=== PATIENT | female | born 1970 | race Caucasian/White ===

== ENCOUNTER 2024-06-14 20:47 | Emergency (ER) | payer MEDICARE, SELFPAY ==
--- NOTE | ~2024-06-14 | XR_ITS ---
EXAMINATION: XR shoulder RT min 2V DATE: 06/14/2024 22:15 INDICATION: Right shoulder injury with acromioclavicular joint separation TECHNIQUE: AP internally and externally rotated, AP oblique externally rotated and transscapular Y vi ews of the right shoulder were obtained. COMPARISON: None FINDINGS: Normal alignment. No fracture. Minimal glenohumeral osteoarthritis. There is moderate to severe oste oarthritis at the right acromioclavicular joint with moderate-sized inferiorly directed osteophytes. Chronic sclerotic bone island along the proximal metadiaphysis of the right humerus which can be seen dating back to PET/CT in 2012. Soft tissues are unremarkable. IMPRESSION: Moderate to severe right briceño clavicular and minimal right humeral osteoarthritis. No acute osseous abnormality. Reviewed, dictated and finalized at location A. IMPRESSION: Moderate to severe right briceño clavicular and minimal right humeral osteoarthr itis. No acute osseous abnormality.
--- NOTE | ~2024-06-14 | XR_ITS ---
EXAMINATION: XR shoulder LT min 2V DATE: 06/14/2024 22:15 INDICATION: Left shoulder pain TECHNIQUE: AP internally and externally rotated, AP oblique externally rotated and transscapular Y vi ews of the left shoulder were obtained. COMPARISON: None FINDINGS: Normal alignment. No fracture. Glenohumeral joint is normal. Mild left acromioclavicular osteoarthri tis. Soft tissues are unremarkable. IMPRESSION: Mild left acromioclavicular osteoarthritis. No acute osseous abnormality. Reviewed, dictated and finalized at location A.
--- NOTE | ~2024-06-14 | XR_ITS ---
EXAMINATION: XR chest 2V DATE: 06/14/2024 22:15 INDICATION: Cough and wheezing TECHNIQUE: PA and lateral views of the chest were obtained. COMPARISON: Chest radiograph dated 07/03/2010 FINDINGS: The lungs are clear with no focal airspace opacities, pulmonary edema, pleural effusion or pneumothor ax. The cardiomediastinal silhouette is normal. Mild thoracic spondylosis. IMPRESSION: 1. No acute cardiopulmonary disease. Reviewed, dictated and finalized at location A.
[2024-06-14 20:53] VITALS: BP 190/88; PULSE 97; RESP 22; O2SAT 98
--- NOTE | 2024-06-14 21:31 | ED.GENADULT ---
HPI - General Adult General Chief complaint: Extremity Injury, Upper Stated complaint: L shoulder pain that radiates to her back Time Seen by Provider: 06/14/24 21:30 Source: patient Mode of arrival: ambulatory Limitations: no limitations History of Present Illness HPI narrative: 53-year-old white female says she has was moving furniture 2 and half weeks ago since that time she has had left shoulder pain. Rates as a 05/31. She has been taking Tylenol. She last took some Aleve at 4:30 a.m. today. She took a friend's Flexeril. It is worse when she moves it is better when she uses muscle rub or cold helps it she has also had some lidocaine that she is put on it which helps. She says she has a history of 3 nodule 6 years ago but never followed up on that denies any shortness of breath she has a chronic cough with no changes otherwise she is eating drinking voiding and stooling fine without any fever swelling lumps or bumps bleeding or bruising. She has had some dizziness yesterday and the day before associated with a headache. Does not have any headache now. Denies any other pain in her body right now she is in between primary care providers she is going to see Dr. Wakefield in June 26 or or the through HS. She has history of hypertension hyperlipidemia bipolar for which she is on disability she has understood lot of stress because her sister 3 years ago of angina. Denies any other complaints. Related Data Home Medications Medication Instructions Recorded Confirmed atorvastatin 20 mg tablet 20 mg PO HS 06/14/24 06/14/24 clonazepam 1 mg tablet 1 mg PO TID 06/14/24 06/14/24 fluoxetine 40 mg capsule 40 mg PO DAILY 06/14/24 06/14/24 metoprolol succinate 25 mg 25 mg PO DAILY 06/14/24 06/14/24 tablet,extended release 24 hr valacyclovir 500 mg tablet 500 mg PO BID 06/14/24 06/14/24 venlafaxine 75 mg capsule,extended 75 mg PO DAILY 06/14/24 06/14/24 release 24 hr zolpidem 10 mg tablet 10 mg PO HS PRN Sleep 06/14/24 06/14/24 Allergies Allergy/AdvReac Type Severity Reaction Status Date / Time Penicillins Allergy Unknown Unknown Verified 06/14/24 23:40 Review of Systems Review of Systems: All systems reviewed & are unremarkable except as noted in HPI and below PMFSH Past Medical History Medical History Arthritis Surgical History Surgical History H/O section History of arthroscopy of both knees Family History Family History Grandparent Hypertension Family history of malignant neoplasm of breast Mother Family history of diabetes mellitus in first degree relative Cerebrovascular accident Family history of osteoporosis Hypertension Family history of malignant neoplasm of kidney Father Asthma Family history of lymphoma Other Family history of malignant neoplasm of male breast Social History Social History Second hand tobacco smoke exposure: Yes Alcohol intake: never Gender identity (if verbalized by the patient): Female Exam Narrative: White female patient with no apparent distress.? Head normocephalic, atraumatic.? Eyes conjunctiva pink sclera nonicteric.? Extraocular movements are intact.? Ears externally normal.? Oropharynx is clear with moist mucous membranes without exudates.? Neck is supple nontender no lymphadenopathy.? Back is nontender.? Lungs are clear.? Heart is regular rate and rhythm without murmurs gallops or rubs.? Chest wall nontender. Abdomen is soft and nontender no hepatosplenomegaly or masses no CVA tenderness no abdominal bruits.? Extremities: Left shoulder has full range of motion she has mild diffuse tenderness. Specially in the trapezius her neck is nontender and full range of motion neurovascular intact for left upper extremity. She
[2024-06-14] MEDS: KETOROLAC 30 MG/ML VIAL (*BKC) IM (22:55)
[2024-06-14 23:22] VITALS: BP 156/82; PULSE 89; RESP 20; O2SAT 97
[2024-06-14] MEDS: HYDROcodone/acetaminophen (*CRX) 5-325 MG TABLET 1 TAB PO (23:43)
== END 2024-06-14 23:55 | disposition home or self-care (01) ==
PROVIDERS: Emergency Provider Emergency Medicine
DX: M25.512 Pain in left shoulder (principal); Z79.899 Other long term (current) drug therapy
CPT/HCPCS: 71046; 73030; 96372; 99284; A9270; J1885

== ENCOUNTER 2024-08-25 13:11 | Outpatient (CLI) | payer MEDICARE, MEDICAID, SELFPAY ==
--- NOTE | ~2024-08-25 | US_ITS ---
EXAMINATION: US soft tissue abdomen DATE: 08/25/2024 13:37 INDICATION: Ventral hernia without obstruction or gangrene. TECHNIQUE: Multiple grayscale and Doppler ultrasound images of the abdomen were obtained. COMPARISON: CT abdomen and pelvis 12/10/2011 FINDINGS: There is a supraumbilical ventral hernia. IMPRESSION: 1. Supraumbilical ventral hernia. Reviewed, dictated and finalized at location A. ICULUM AND ASSESSMENT COORDINATOR
== END 2024-08-25 13:12 | disposition home or self-care (01) ==
LOC: CHSIMG 13:14
PROVIDERS: PCP Nurse Practitioner Family; Visit Provider Nurse Practitioner Family
DX: K43.9 Ventral hernia without obstruction or gangrene (principal)
CPT/HCPCS: 76705

== ENCOUNTER 2024-11-24 13:26 | Outpatient (CLI) | payer MEDICARE, MEDICAID, SELFPAY ==
--- NOTE | ~2024-11-24 | XR_ITS ---
[id number] Ordering provider: Evon Peraza NP History: . M54.2 - Cervicalgia . Comparison: None. FINDINGS: VERTEBRAL BODIES: Normal height and alignment. No visible fracture or subluxation. The dens is intact . DISK SPACES: Narrowing of the disc C6-C7. Multilevel uncovertebral joint osteoarthritic changes. PARASPINOUS SOFT TISSUES: No prevertebral soft tissue swelling. IMPRESSION: No acute osseous abnormality cervical spine. Reviewed, dictated and finalized at location A. MILL OPERATOR
--- NOTE | ~2024-11-24 | MM_ITS ---
EXAMINATION: MM screening oscar BI w antony HISTORY: Screening mammogram TECHNIQUE: Craniocaudal and mediolateral oblique 3-D tomosynthesis images were obtained and synthetic 2-D images were generated. CAD analysis was submitted and interpreted. COMPARISON: No prior mammogram is available for comparison at this institution. BREAST PARENCHYMAL COMPOSITION:Not Dense. There are scattered areas of fibroglandular density. FINDINGS: No suspicious mass, calcification, or architectural distortion are identified in either delia ast to suggest malignancy. There has been no suspicious interval change. IMPRESSION: No mammographic evidence of malignancy. Recommend routine screening mammography in one year. BI-RADS Category 1: Negative Reviewed, dictated and finalized at location . [employer]
--- NOTE | 2024-11-24 13:34 | ECG_ITS ---
Test Date: 2024-11-24 14:07:31 Measurements Intervals Epsom Rate: 83 P: 64 VT: 186 QRS: 66 QRSD: 90 T: 71 QT: 392 QTc: 463 Interpretive Statements SINUS RHYTHM POSSIBLE LEFT VENTRICULAR HYPERTROPHY [VOLTAGE CRITERIA PLUS LAE OR QRS WIDENING] POSSIBLE SEPTAL MYOCARDIAL INFARCTION , OF INDETERMINATE AGE [30 ms Q WAVE IN V1/V2] No previous ECG available for comparison Electronically Signed On 11-24-2024 14:14:24 IT PROGRAMMER ANALYST by Edy Craft M.D.
--- OUTSIDE RECORDS SUMMARY | 2024-11-24 14:49 | XMS_ITS ---
Author Organization [facility] Address [facility] [address] [facility] [address] [place] [address] Care Team Providers Care Supervisor Endless Track Vehicle Name Role Phone Malik French Unavailable [phone] Migration, Provider Unavailable Unavailable REASON FOR VISIT EMR-Reymundo Social History Sex Assigned At : Social History Observation Description Sex Assigned At Female Encounters Encounter Location Date Provider Diagnosis [facility] [place] [id number] [facility] [address] [place] [address] 02/06/2024 Provider Migration Plan Of Treatment Next Appt Details Provider Name:Malik vera, 12/01/2024 01:45:00 PM, [address], [facility] [address], [place], [address], Progress Notes * RUPERT PASTORDOB:[birth year] (53 yo F)Acc No.[id number]:02/06/2024 Patient: RUPERT LOUIS :1970 A ge:53 Y S ex:Female Address:[address] [place] [address], [id number] Subjective: * Chief Complaints: * E MR-Reymundo * Medical History: * Surgical History: * Hospitalization/Major Diagno stic Procedure: * Medications: Objective: * Vitals: * Physical Examination: Assessment: Plan: * Treatment: * Procedure Codes: * true * Date: Generated for Printi ng/Faxing/eTransmitting on: 0 11/24/2024 02:49 PM DIORAMIST
--- OUTSIDE RECORDS SUMMARY | 2024-11-24 14:49 | XMS_ITS ---
Author Organization [facility] [employer] [employer] Address [address] [facility] [address] [place] [address] Care Team Providers Care Wildfire Prevention Specialist Name Role Phone Malik French Unavailable [phone] Migration, Provider Unavailable Unavailable REASON FOR VISIT EMR-Reymundo Medications Medication SIG (Take, Route, Frequency, Duration) Notes Start Date End Date Status Ibuprofen 800 MG Oral Act katerina amLODIPine Besylate 10 MG Oral Active Ziprasidone HCl 20 MG Oral Active amLODIPine Besylate 2.5 MG Oral Active clonazePAM 1 MG Oral Acti ve hydrOXYzine Pamoate 50 MG Oral Active ADACEL TDAP 2 Lf-(2.5-5-3-5 mcg)-5Lf/0.5 mL Intramuscular *Reorder from [facility] for eRx and Interaction Alerts* Active hydroCHLOROthiazide 25 MG Oral Active Zolpidem Tartrate 5 MG Oral Active FLUoxetine HCl 20 MG Oral Active amLODIPine Besylate 5 MG Oral Active Cephalexin 500 MG Oral Ac tive Zolpidem Tartrate 10 MG Oral Active Venlafaxine HCl ER 75 MG Oral Active hydroCHLOROthiazide 12.5 MG Oral Active valACYclovir HCl 1 GM Oral Active ARIPiprazole 15 MG Oral A ctive ARIPiprazole 10 MG Oral A ctive Atorvastatin Calcium 20 MG Oral Active Social History Sex Assigned At : Social History Observation Description Sex Assigned At Female Encounters Encounter Location Date Provider Diagnosis [facility] [address] [facility] [address] [facility] [address] [place] [address] 02/07/2024 Provider Migration Plan Of Treatment Next Appt Details Provider Name:Malik vera, 12/01/2024 01:45:00 PM, [address], [facility] [address], [place], [address], Progress Notes * RUPERT PASTORDOB:[birth year] (53 yo F)Acc No.[id number]:02/07/2024 Patient: RUPERT LOUIS :1970 A ge:53 Y S ex:Female Address:[address] [place] [address] Subjective: * Chief Complaints: * E MR-Reymundo * Medical History: * Surgical History: * Hospitalization/Major Diagno stic Procedure: * Medications: T akingamLODIPine Besylate 2.5 MG Tablet Oral clonazePAM 1 MG Tablet Oral Ziprasidone HCl 20 MG Capsule Oral ADACEL TDAP 2 Lf-(2.5-5-3-5 mcg)-5Lf/0.5 mL Suspension Intramuscular , Notes to Pharmacist: *Reorder from [facility] for eRx and Interaction Alerts*Venlafaxine HCl ER 75 MG Capsule Extended Release 24 Hour Oral hydroCHLOROthiazide 25 MG Tablet Oral Atorvastatin Calcium 20 MG Tablet Oral FLUoxetine HCl 20 MG Capsule Oral hydrOXYzine Pamoate 50 MG Capsule Oral amLODIPine Besylate 5 MG Tablet Oral Zolpidem Tartrate 10 MG Tablet Oral Cephalexin 500 MG Capsule Oral Ibuprofen 800 MG Tablet Oral amLODIPine Besylate 10 MG Tablet Oral ARIPiprazole 10 MG Tablet Oral ARIPiprazole 15 MG Tablet Oral valACYclovir HCl 1 GM Tablet Oral hydroCHLOROthiazide 12.5 MG Tablet Oral Zolpidem Tartrate 5 MG Tablet Oral Taking amLODIPine Besylate 2.5 MG Tablet Oral Taking clonazePAM 1 MG Tablet Oral Taking Ziprasidone HCl 20 MG Capsule Oral Taking ADACEL TDAP 2 Lf-(2.5-5-3-5 mcg)-5Lf/0.5 mL Suspension Intramuscular , Notes to Pharmacist: *Reorder from [facility] for eRx and Interaction Alerts*Taking Venlafaxine HCl ER 75 MG Capsule Extended Release 24 Hour Oral Taking hydroCHLOROthiazide 25 MG Tablet Oral Taking Atorvastatin Calcium 20 MG Tablet Oral Taking FLUoxetine HCl 20 MG Capsule Oral Taking hydrOXYzine Pamoate 50 MG Capsule Oral Taking amLODIPine Besylate 5 MG Tablet Oral Taking Zolpidem Tartrate 10 MG Tablet Oral Taking Cephalexin 500 MG Capsule Oral Taking Ibuprofen 800 MG Tablet Oral Taking amLODIPine Besylate 10 MG Tablet Oral Taking ARIPiprazole 10 MG Tablet Oral Taking ARIPiprazole 15 MG Tablet Oral Taking valACYclovir HCl 1 GM Tablet Oral Taking hydroCHLOROthiazide 12.5 MG Tablet Oral Taking Zolpidem Tartrate 5 MG Tablet Oral Objective: * Vitals: * Physical Examination: Assessment: Plan: * Treatment: * Procedure Codes: * true * Date: Generated for Raomne bender/Umesh/Costa on: 0 11/24/2024 02:48 PM CLUB MANAGER
--- OUTSIDE RECORDS SUMMARY | 2024-11-24 14:49 | XMS_ITS | Clinical Summary ---
Author Organization [facility] Address [address] [facility], [address] [address] Phone Care Team Providers Care Pond Sawyer Name Role Phone Unavailable Primary Care Provider Unavailabl e Allergies Active Allergy Reactions Criticality Noted Date Comments Gabapentin Rash 04/02/2018 Medications hydroCHLOROthiaz precious 25 MG Tablet Take 25 mg by mouth daily. Active amLODIPine (NORVASC) 10 MG Tablet Take 10 mg by mouth daily. Active venlafaxine (EFFEXOR) 75 MG Tablet Take 75 mg by mouth 2 times daily. Active FLUoxetine (PROZAC) 20 MG Capsule Take 40 mg by mouth daily. Active zolpidem (AMBIEN) 5 MG Tablet Take 5 mg by mouth nightly as needed. Active clonazePAM (KLONOPIN) 1 MG Tablet Take 1 mg by mouth 3 times daily. Active Diphenhydramine- Zinc Acetate (BENADRYL EX) by Apply externally route. Active Blood Pressure Monitoring (BLOOD PRESSURE MONITOR AUTOMAT) Device 1 Device by Does not apply route daily. 1 Device 7 Active budesonide-formo terol fumarate (SYMBICORT) 160-4.5 MCG/ACT AerosolIndicatio ns:Chronic obstructive pulmonary disease, unspecified COPD type (HCC) take 2 Puffs by inhalation 2 times daily. 1 Inhaler 5 8 Active Dextromethorphan -Guaifenesin (MUCINEX DM MAXIMUM STRENGTH) 60-1200 MG TABLET SR 12 HRIndications:Ch ronic obstructive pulmonary disease, unspecified COPD type (HCC) Take 1 Tab by mouth every 12 hours. 60 Tab 8 Active triamcinolone (KENALOG) 0.1 % CreamIndications :Dermatitis Application Site: apply to elbows twice daily for up to 2 weeks 80 g 1 8 Active Additional Information Patient not taking.Reported on 04/01/2018 HYDROcodone-acet aminophen (NORCO) 7.5-325 MG TabletIndication s:Neuropathy,Floyd ateral hand pain Take 1 Tab by mouth 2 times daily. 60 Tab 8 Active promethazine-cod eine (PHENERGAN WITH CODEINE) 6.25-10 MG/5ML Syrup Take 5 mL by mouth every 4 hours as needed for Cough. 280 mL 8 Active valACYclovir (VALTREX) 1 GM Tablet TAKE 1 TABLET BY MOUTH TWICE A DAY 180 Tab 9 Active ibuprofen (MOTRIN) 800 MG Tablet TAKE 1 TABLET BY MOUTH EVERY 8 HOURS NEEDED FOR MILD PAIN 90 Tab 9 Active Active Problems Patient Care Coordination No te Formatting of this note migh t be different from the original. Do not refill any controlled substances Problem Noted Date Diagnosed Date Hyperlipidemia 01/01/2018 Neuropathy 01/01/2018 Bilateral hand pain 01/01/2018 Chronic obstructive pulmonary disease 11/05/2017 Gastroesophageal reflux disease without esophagi tis 06/04/2017 Dyslipidemia 05/29/2017 Pain of right hand 05/29/2017 Primary osteoarthritis involving multiple joints 04/09/2017 Genital herpes simplex 12/04/2016 Hypertension Manic depression CPAP use counseling Bipolar affective disorder, manic, moderate Lung nodule Resolved Problems Problem Noted Date Diagnosed Date Resolved Date Morbid obesity due to excess calories 04/09/2017 12/03/2017 Immunizations Immunization Administration Dates Next Due TDAP Vaccine 02/18/2017 Social History Tobacco Use Types Packs/Day Years Used Date Smoking Tobacco: Every Day Cigarettes Smokeless Tobacco: Never Tobacco Cessation:Ready to Q uit: No; Counseling Given: Yes Alcohol Use Standard Drinks/Week Comments No 0 (1 standard drink = 0.6 oz pur e alcohol) Comments No Sex and Gender Information Value Date Recorded Sex Assigned at Not on file 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 Gender Identity Not on file Sexual Orientation Not on file Last Filed Vital Signs Vital Sign Reading Time Taken Comments Blood Pressure 116/68 04/01/2018 10:34 AM CDT Pulse 88 04/01/2018 10:34 AM CDT Temperature 36.7 C (98 F) 04/01/2018 10:34 AM CDT Respiratory Rate 16 04/01/2018 10:34 AM CDT Oxygen Saturation 99% 04/01/2018 10:34 AM CDT Inhaled Oxygen Concentration - - Weight 85.5 kg (188 lb 9.6 oz) 04/01/2018 10:34 AM CDT Height 170.2 cm (5' 7 ) 04/01/2018 10:34 AM CDT Body Mass Index 29.54 04/01/2018 10:34 AM CDT Plan of Treatment Health Maintenance Due Date Last Done Comments Hepatitis C Virus (HCV) Screening 1970 Pneumococcal Immunization Co mbined (1 of 2 - PCV) 1977 Hepatitis B Immunization (1 of 3 - 19+ 3-dose series) 1990 Pneumococcal Immunization (5 0+ years) (1 of 2 - PCV) 1990 Pap Smear 1992 Cervical Cancer Screening (CCS) 2001 HPV/Cotest 2001 Colonoscopy 2016 Colorectal Cancer Screening 2016 Cologuard 2021 Immunochemical Fecal Occult Blood 2021 Mammogram 2021 Zoster Immunization (1 of 2) 2021 Influenza Immunization (#1) 2024 SARS-COV-2 Immunization ( - season) 2024 Td Immunization Every 10 Yea rs (Adults With 1 Tdap) 02/18/2027 02/18/2017 Respiratory Syncytial Virus (RSV) Immunization (Adult) (1 - 1-dose 75+ series) 2046 Meningococcal Immunization (ACWY) Aged Out No longer eligible based on patient's age to complete this topic Rotavirus Immunization Aged Out No lo nger eligible based on patient's age to complete this topic Insurance MEDICARE [place]ICAID [place]
--- OUTSIDE RECORDS SUMMARY | 2024-11-24 14:49 | XMS_ITS | Encounter Summary ---
Author Organization [facility] Address [address] [place] [address] Care Team Providers Care Spare Person Name Role Phone Stacie Boudreaux MD Primary Care Provider + [phone] Brian Agosto NP Primary Care Provide r Elliott Loving MD Primary Care Provider [phone] Encounter Details Date Type Department Care Team (Late st Contact Info) Description 02/26/2019 Abstract [facility]FL CONVERSION [address] [place] [address] , Generic Conversion, Social History Tobacco Use Types Packs/Day Years Used Date Smoking Tobacco: Never Assessed Comments Unknown Sex and Gender Information Value Date Recorded Sex Assigned at Not on file 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 Gender Identity Not on file Sexual Orientation Not on file documented as of this encounter Plan of Treatment Not on file documented as of this encounter Visit Diagnoses Not on filedocumented in this encounter Care Teams Spare Person Relationship Specialty Start Date End Date Stacie Boudreaux MD [address] [place] [phone] PCP - General FAMILY PRACTICE 11/28/22 10/07/23 Brian Agosto NP [address] [place] [phone] PCP - General NURSE PRACTITIONER ADULT HEALTH 10/08/23 04/11/24 [place] [id number] [address] PCP - General INTERNAL MEDICINE 04/12/24 06/29/24 documented as of this encounter
--- OUTSIDE RECORDS SUMMARY | 2024-11-24 14:49 | XMS_ITS ---
Author Organization [facility] Address [address] [place] [address] Care Team Providers Care Instrumentation Chemist Name Role Phone Malik French Unavailable [phone] REASON FOR VISIT No messages, no calls Medications Medication SIG (Take, Route, Frequency, Duration) Notes Start Date End Date Status Zolpidem Tartrate 5 MG Oral Active valACYclovir HCl 1 GM Oral Active hydroCHLOROthiazide 12.5 MG Oral Active ARIPiprazole 10 MG Oral A ctive ARIPiprazole 15 MG Oral A ctive amLODIPine Besylate 5 MG Oral Active Ibuprofen 800 MG Oral Act katerina amLODIPine Besylate 10 MG Oral Active Zolpidem Tartrate 10 MG Oral Active Cephalexin 500 MG Oral Ac tive hydrOXYzine Pamoate 50 MG Oral Active Atorvastatin Calcium 20 MG Oral Active FLUoxetine HCl 20 MG Oral Active Venlafaxine HCl ER 75 MG Oral Active hydroCHLOROthiazide 25 MG Oral Active ADACEL TDAP 2 Lf-(2.5-5-3-5 mcg)-5Lf/0.5 mL Intramuscular *Reorder from [facility] for eRx and Interaction Alerts* Active clonazePAM 1 MG Oral Acti ve Ziprasidone HCl 20 MG Oral Active amLODIPine Besylate 2.5 MG Oral Active Social History Sex Assigned At : Social History Observation Description Sex Assigned At Female Encounters Encounter Location Date Provider Diagnosis [facility] [facility] [address] [facility] [address] [facility] [address] [place] [address] 10/28/2024 Malik French Plan Of Treatment Next Appt Details Provider Name:Malik vera, 12/01/2024 01:45:00 PM, [address], [place], [address], Progress Notes * RUPERT PASTOR LDOB:1970 (54 yo F)Acc No.[id number]:10/28/2024 Patient: RUPERT LOUIS Provider: MARCO COLLINS :1970 A ge:54 Y S ex:Female Date:10/28/2024 Address:[address] [place] [address] Subjective: * Chief Complaints: * 1 . No messages, no calls. * Medical History: * Medications: T aking amLODIPine Besylate 2.5 MG Tablet Oral , Taking clonazePAM 1 MG Tablet Oral , Taking Ziprasidone HCl 20 MG Capsule Oral , Taking ADACEL TDAP 2 Lf-(2.5-5-3-5 mcg)-5Lf/0.5 mL Suspension Intramuscular , Notes to Pharmacist: *Reorder from [facility] for eRx and Interaction Alerts*, Taking Venlafaxine HCl ER 75 MG Capsule Extended Release 24 Hour Oral , Taking hydroCHLOROthiazide 25 MG Tablet Oral , Taking Atorvastatin Calcium 20 MG Tablet Oral , Taking FLUoxetine HCl 20 MG Capsule Oral , Taking hydrOXYzine Pamoate 50 MG Capsule Oral , Taking amLODIPine Besylate 5 MG Tablet Oral , Taking Zolpidem Tartrate 10 MG Tablet Oral , Taking Cephalexin 500 MG Capsule Oral , Taking Ibuprofen 800 MG Tablet Oral , Taking amLODIPine Besylate 10 MG Tablet Oral , Taking ARIPiprazole 10 MG Tablet Oral , Taking ARIPiprazole 15 MG Tablet Oral , Taking valACYclovir HCl 1 GM Tablet Oral , Taking hydroCHLOROthiazide 12.5 MG Tablet Oral , Taking Zolpidem Tartrate 5 MG Tablet Oral Objective: * Vitals: Assessment: Plan: * Treatment: * Billing Information: * Visit Code: * Procedure Codes: * Electronic signature of MARCO Mills on 11/24/2024 at 02:49 PM COLLEGE AND CAREER COUNSELOR Sign off status: Pending * Provider: MARCO COLLINS Date: 10/28/2024 Generated for Ramone bender/Umesh/Costa on: 11/24/2024 02:49 PM COLLEGE AND CAREER COUNSELOR
--- OUTSIDE RECORDS SUMMARY | 2024-11-24 14:49 | XMS_ITS | Clinical Summary ---
Author Organization [facility] Address [address] [place] [address] Care Team Providers Care Photographic Developer And Printer Name Role Phone Unavailable Primary Care Provider Unavailabl e Allergies Active Allergy Reactions Criticality Noted Date Comments Gabapentin Rash Low 04/02/2018 Penicillin G Rash Low 12/11/2023 Medications FLUoxetine (PROZAC) 40 MG capsuleIndications :PATIENT STATES SHE TAKES 60MG DAILY IN WINTER MONTHS Take 1 capsule (40 mg total) by mouth daily. Indications: PATIENT STATES SHE TAKES 60MG DAILY IN WINTER MONTHS 10/20/19 24 Active venlafaxine XR (EFFEXOR-XR) 75 MG 24 hr capsuleIndications :Recurrent major depressive disorder, in partial remission (CMS/HCC) Take 1 capsule (75 mg total) by mouth daily. 90 capsule 1 12/11/19 24 Active Additional Information Patient taking differently: 150 mgOral Daily,Indications: PATIENT TAKING 150MG DAILY, Reported on 03/15/2024 fluconazole (DIFLUCAN) 150 MG tabletIndications: Candidiasis of breast Take 1 tablet (150 mg total) by mouth daily. 7 tablet 12/11/19 24 Active Additional Information Patient not taking.Reported on 03/15/2024 venlafaxine XR (EFFEXOR-XR) 75 MG 24 hr capsuleIndications :Bipolar affective disorder, remission status unspecified (CMS/HCC HHS/HCC) Take 2 caps by mouth daily for mood stability 180 capsule 2 03/16/20 24 Active valACYclovir (VALTREX) 500 MG tabletIndications: Hx of herpes simplex type 2 infection Take 1 tablet (500 mg total) by mouth 2 (two) times daily. 14 tablet 1 03/16/20 24 Active losartan (COZAAR) 50 MG tabletIndications: Hypertension, essential Take 1 tablet (50 mg total) by mouth daily. 90 tablet 1 03/16/20 24 Active metoprolol succinate ER (TOPROL-XL) 25 MG 24 hr tabletIndications: Hypertension, essential Take 1 tablet (25 mg total) by mouth daily. 90 tablet 1 03/16/20 24 Active albuterol sulfate HFA 108 (90 Base) MCG/ACT inhalerIndications :Chronic obstructive pulmonary disease, unspecified COPD type ([facility]) Inhale 2 puffs into the lungs every 6 (six) hours as needed for Wheezing. 18 g 4 03/17/20 24 Active Fluticasone-Umecli din-Vilant (TRELEGY ELLIPTA) 100-62.5-25 MCG/ACT AEROSOL POWDER, BREATH ACTIVATEDIndicatio ns:Chronic obstructive pulmonary disease, unspecified COPD type ([facility]) Inhale 1 Inhalation into the lungs daily. 60 each 5 03/17/20 24 Active atorvastatin (LIPITOR) 20 MG tabletIndications: Hyperlipidemia, unspecified hyperlipidemia type Take 1 tablet (20 mg total) by mouth nightly at bedtime. 90 tablet 06/23/20 24 Active clonazePAM (KLONOPIN) 1 MG tabletIndications: Generalized anxiety disorder,Panic disorder Take 1 tablet (1 mg total) by mouth 3 (three) times daily as needed for Anxiety. 21 tablet 06/30/20 24 Active zolpidem (AMBIEN) 5 MG tabletIndications: Insomnia due to other mental disorder Take 1 tablet (5 mg total) by mouth nightly as needed. 7 tablet 06/30/20 24 Active Active Problems Problem Noted Date Diagnosed Date Lung nodule 03/08/2024 Hypertension 03/08/2024 Bipolar disorder ([facility]) 03/08/2024 Bipolar affective disorder, manic, moderate ([facility]) 03/08/2024 Neuropathy 01/01/2018 Hyperlipidemia 01/01/2018 Chronic obstructive pulmonary disease ([facility] H HS/HCC) 11/05/2017 Gastroesophageal reflux disease without esophagi tis 06/04/2017 Dyslipidemia 05/29/2017 Bilateral hand pain 05/29/2017 Primary osteoarthritis involving multiple joints 04/09/2017 Genital herpes simplex 12/04/2016 Right knee pain 10/22/2015 Resolved Problems Problem Noted Date Diagnosed Date Resolved Date CPAP use counseling 03/08/2024 03/14/20 Encounter for preventive health examination 10/22/2015 03/14/2024 Encounters Date Type Department Care Team Description 11/16/2024 Patient Outreach [facility] Family [facility] Internal [facility] [address] [place] [id number] Hieu Reina CPhT Medication (Losartan Medication adherence review for 2023) from Last 3 Months Immunizations Name Administration Dates Next Due Tdap (Generic) 04/23/2020,02/18/2017 Family History Medical History Relation Comments Hodgkin's lymphoma Father Diabetes Mother Relation Status Comments Father Mother Social History Tobacco Use Types Packs/Day Years Used Date Smoking Tobacco: Every Day Cigarettes Smokeless Tobacco: Never Tobacco Cessation:Ready to Q uit: Not Asked; Counseling Given: Yes Alcohol Use Standard Drinks/Week Comments Not Currently 0 (1 standard drink = 0.6 oz pur e alcohol) PHQ-2 Answer Date Recorded Patient Health Questionnaire-2 Score 4 03/15/2024 Comments No Sex and Gender Information Value Date Recorded Sex Assigned at Not on file Legal Sex Female 9:33 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 Gender Identity Not on file Sexual Orientation Not on file Last Filed Vital Signs Vital Sign Reading Time Taken Comments Blood Pressure 133/88 03/15/2024 1:07 PM CDT Pulse 104 03/15/2024 1:07 PM CDT Temperature 36.8 C (98.3 F) 03/15/2024 1:07 PM CDT Respiratory Rate 18 03/15/2024 1:07 PM CDT Oxygen Saturation 98% 03/15/2024 1:07 PM CDT Inhaled Oxygen Concentration - - Weight 99.8 kg (220 lb) 03/15/2024 1:07 PM CDT Height 170.2 cm (5' 7 ) 03/15/2024 1:07 PM CDT Body Mass Index 34.46 03/15/2024 1:07 PM CDT Plan of Treatment Health Maintenance Due Date Last Done Comments Cervical Cancer Screening Pa p Smear (Age 30 to 64) Every 3 Years 1971 Colorectal Cancer Screening Colonoscopy (10 Years) 1971 Annual Physical 1974 Pneumococcal Vaccine: Pediatrics (0 to 5 Years) and At-Risk Patients (6 to 64 Years) (1 of 2 - PCV) 1977 Hepatitis C 1989 Hepatitis B Vaccines (1 of 3 - 19+ 3-dose series) 1990 Cervical Cancer Screening Pa p with HPV Testing (Age 30 to 64) Every 5 Years 2001 Cervical Cancer Screening wi th HPV 2001 Mammogram Screening 2011 Zoster Vaccines (1 of 2) 2021 COVID-19 Vaccine (1 - 2023-2 5 season) 2024 Influenza Adult (#1) 2024 PHQ-2 (Physician [place]) 09/21/2024 03/15/2024 DTaP, Tdap and Td Vaccines ( 3 - Td or Tdap) 04/23/2030 04/23/2020, 02/18/2017 Meningococcal B Vaccine Aged Out No l onger eligible based on patient's age to complete this topic Meningococcal Vaccine Aged Out No bob donnie eligible based on patient's age to complete this topic RSV Immunizations Under 20 Months Aged Out No longer eligible b ased on patient's age to complete this topic Insurance [facility] MEDICAID
--- OUTSIDE RECORDS SUMMARY | 2024-11-24 14:49 | XMS_ITS | Patient Health Record ---
Author Organization [facility] Address [address] [place] [address] Care Team Providers Care Tea Room Manager Name Role Phone Malik French Unavailable [phone] Migration, Provider Unavailable Unavailable Reason For Referral No Information Medications Medication SIG (Take, Route, Frequency, Duration) Notes Start Date End Date Status hydrOXYzine Pamoate 50 MG Oral Active amLODIPine Besylate 5 MG Oral Active Atorvastatin Calcium 20 MG Oral Active FLUoxetine HCl 20 MG Oral Active Venlafaxine HCl ER 75 MG Oral Active hydroCHLOROthiazide 25 MG Oral Active valACYclovir HCl 1 GM Oral Active hydroCHLOROthiazide 12.5 MG Oral Active ADACEL TDAP 2 Lf-(2.5-5-3-5 mcg)-5Lf/0.5 mL Intramuscular *Reorder from frintit for eRx and Interaction Alerts* Active ARIPiprazole 10 MG Oral A ctive ARIPiprazole 15 MG Oral A ctive clonazePAM 1 MG Oral Acti ve Ibuprofen 800 MG Oral Act katerina Ziprasidone HCl 20 MG Oral Active amLODIPine Besylate 10 MG Oral Active Zolpidem Tartrate 10 MG Oral Active amLODIPine Besylate 2.5 MG Oral Active Cephalexin 500 MG Oral Ac tive Zolpidem Tartrate 5 MG Oral Active Social History Sex Assigned At : Social History Observation Description Sex Assigned At Female Encounters Encounter Location Date Provider Diagnosis [facility] [employer] [facility] [address] [place] [address] 10/28/2024 Malik French [facility] [employer] [facility] [address] [place] [address] 02/06/2024 Provider Migration [facility] [employer] [facility] [address] [place] [address] 02/07/2024 Provider Migration Plan Of Treatment Next Appt Details Provider Name:Malik Ric vera, 12/01/2024 01:45:00 PM, [address], [facility] [address], [place], [address], Insurance Providers Payer Name Payer Address Payer Phone Subscriber Number Group Number Insured Name Patient Relationship to Insured Coverage Start Date Coverage End Date [place] [address] [place] [phone] [id number] RUPERT PASTOR Self - patient is the insured [place] [address] [address] [place] [address] [id number] RUPERT PASTOR Self - patient is the insured [facility] [address] [place] [address] [id number] RUPERT PASTOR Self - patient is the insured
--- OUTSIDE RECORDS SUMMARY | 2024-11-24 14:49 | XMS_ITS | Continuity of Care Document ---
Author Organization [facility] Address [address] [place] [address] Phone Care Team Providers Care Chief Airport Guide Name Role Phone Brenden Zavala MD Unavailable Unavailable Allergies, Adverse Reactions, Alerts Substance Reaction Status Criticality No Known Allergies Active No Inform ation Medications Medication Instructions Dosage Effective Dates (start - stop) Status Comments ibuprofen 800 mg tablet take 1 tablet (800MG) by oral route every 6 - 8 hours with food 800 MG - Active lisinopril 40 mg tablet take 1 tablet (40MG) by oral route every day 40 MG - Active Vicodin ES 7.5 mg-750 mg tablet take 1 tablet by oral route every 6 hours as needed - Active PRN for pain, avoid driving or operate machines Flonase 50 mcg/actuation Nasal [place] inhale 2 spray (100MCG) by intranasal route every day in each nostril 100 MCG - Active ProAir HFA 90 mcg/actuation Aerosol Inhaler inhale 2 puff by inhalation route every 4 - 6 hours as needed - Active Procedures Procedure Date OFFICE/OUTPATIENT VISIT, EST OFFICE/OUTPATIENT VISIT, EST OFFICE/OUTPATIENT VISIT, NEW Advance Directives Directive Yes / No Effective Date File Name No Information Encounters Encounter Description Practice Location Reason(s) For Visit Diagnoses Date Provider Providers Copied on Encounter [facility], [address] [place], [id number], [place] tel:[phone] [facility] No Information 3 Lucas Wilcox. [address], [place], [place], [address] , [place]. tel:[phone] Referring Provider: Jos Lundy [address], [place], [place], [id number]. tel:[phone] OFFICE/OUTPA TIENT VISIT, [facility], [address], [place], [place], [address], [place] tel:[phone] [facility] chrnoic pain (chief complaint)H TN (chief complaint)a nxiety (chief complaint) Dietary surveillance and counselingHyperten dennys, UnspecifiedCHRONIC PAIN NEC 3 Lucas Wilcox. [address], [place], [place], [address] , [place]. tel:[phone] Referring Provider: Jos Lundy [address], [place], [place], [id number]. tel:[phone] OFFICE/OUTPA TIENT VISIT, [facility], [address], [place], [place], [address], [place] tel:[phone] [facility] chronic pain (chief complaint)A nxiety (chief complaint)s inus congestion (chief complaint) Dietary surveillance and counselingHyperten dennys, UnspecifiedSOLITAR Y PULMONRY NODULECHRONIC PAIN NECCOPD 3 Lucas Wilocx. [address], [place], [place], [address] , [place]. tel:[phone] Referring Provider: Jos Lundy [address], [place], [place], [address]. tel:[phone] OFFICE/OUTPA TIENT VISIT, [facility], [address], [place], [place], [address], [place] tel:[phone] [facility] multiple complaints (chief complaint)c hornic pain (chief complaint) Dietary surveillance and counselingCOPDHype rtension, UnspecifiedCHRONIC PAIN NECSOLITARY PULMONRY NODULE 3 Lucas Wilcox. [address], [place], [place], [address] , [place]. tel:[phone] Referring Provider: [place], [id number]. tel:[phone] Family History Family Member Type Diagnosis Age At Onset Brother Problem (finding) Unknown Disease Father Problem (finding) Lymphoma Mother Problem (finding) Osteoporosis Problem (finding) Family history of Strok e Mother Problem (finding) Diabetes mellitus Payers Payer name Insurance type Covered constitution party ID Authoriza tion(s) No Information Social History Type Description Quantity Date Captured Comments Sex Female Smoking Status No Information Chief Complaint And Reason For Visit No Information Plan Of Treatment Date Type Action Status Goal Tobacco cessation counseling completed Goal Tobacco cessation counseling completed Goal Tobacco cessation counseling completed Referral Ordered: MAMMOGRAM, SCREENING ordered Referral Ordered: Referral: Pulmonary Diseases. ordered History Of Present Illness Encounter Date Complaint History Of Prese nt Illness No Information Instructions Date Instruction Additional Infor lilian Decrease caloric intake Related to Dietary surveillance counseling Dietary counseling Related to Di etary surveillance counseling Decrease caloric intake Related to Dietary surveillance counseling Dietary counseling Related to Di etary surveillance counseling Decrease caloric intake Related to Dietary surveillance counseling Dietary counseling Related to Di etary surveillance counseling Assessments Type Assessment Date No Information
== END 2024-11-24 13:27 | disposition home or self-care (01) ==
LOC: CHSIMG 13:29
PROVIDERS: PCP Nurse Practitioner Family; Visit Provider Nurse Practitioner Family
DX: Z01.818 Encounter for other preprocedural examination (principal); I10 Essential (primary) hypertension; M54.2 Cervicalgia; Z12.31 Encounter for screening mammogram for malignant neoplasm of breast
CPT/HCPCS: 72040; 77063; 77067; 93005